=== PATIENT | male | born 2000 | race African-American/Black ===

== ENCOUNTER 2019-01-20 13:15 | Emergency (ER) | payer OTHER ==
[~2019-01-20] VITALS: Ht 195.6 cm; Wt 96.9 kg
[2019-01-20 13:16] VITALS: BP 135/68
--- NOTE | 2019-01-20 13:41 | REP ---
Clinical: Trauma. Technique: AP, lateral, bilateral oblique views right wrist. Findings: The carpal bones, surrounding osseous structures, soft tissues, and joint spaces are normal. There is no evidence for acute fracture or dislocation. No subcutaneous emphysema or radiodense foreign body. Impression: Normal right wrist series. No acute fracture or dislocation Electronically Signed by Tom Varela MD 01/20/2019 01:33 P
== END 2019-01-20 14:07 | disposition home or self-care (01) ==
LOC: M ED 13:15
DX: S60.221A Contusion of right hand, initial encounter (principal); W23.0XXA Caught, crushed, jammed, or pinched between moving objects, initial encounter; Y92.009 Unspecified place in unspecified non-institutional (private) residence as the place of occurrence of the external cause